=== PATIENT | female | born 1975 ===

== ENCOUNTER 2020-06-19 13:54 | Outpatient (RCR) | payer OTHER, SELFPAY ==
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
--- NOTE | 2020-07-02 14:42 | PCPTNOTE ---
pt did not show for today's appt, attempted to call her, voicemail box is full and was not able to leave her a message with reminder for next appointment time.
--- NOTE | 2020-07-04 14:01 | PCPTNOTE ---
pt did not show for today's appt, called her phone and voice mail box was full, so not able to leave her a message; this is her 2nd in a row show;
--- NOTE | 2020-07-09 14:38 | PCPTNOTE ---
Patient did not show up for scheduled appointment this date; called, voicemail box is full. Notified PT on third no show on next step per our policy.
--- NOTE | 2020-08-06 08:58 | PCPTNOTE ---
PHYSICAL THERAPY DISCHARGE 08-06-2020 Attending Provider: Denise Mo MD Patient:Elvira Asher Date of :1975 Elvira has not returned for any further treatments since the initial evaluation on 06/19/2020, therefore she will be discharged at this time. She did not show for 3 scheduled appointments. The goals were not assessed. Thank you for referring Ms. Asher to [facility]. Please review, sign, date and return this discharge summary JCARLOS. I have been updated about the patient's current status and I agree with discharge from the above service at this time. Referring Physician Date
== END 2020-08-06 14:34 | disposition home or self-care (01) ==
LOC: ANHPT 13:54
PROVIDERS: PCP Family Medicine; Visit Provider Family Medicine
DX: M62.81 Muscle weakness (generalized) (principal)
CPT/HCPCS: 97162

== ENCOUNTER 2020-08-09 06:54 | Outpatient (NON) | payer OTHER, SELFPAY ==
[2020-08-10 22:24] LABS: SARS-CoV-2 RNA PCR Negative
== END 2020-08-09 06:55 ==
LOC: ANHCOVIDDT 06:54
PROVIDERS: PCP Family Medicine; Visit Provider Family Medicine
DX: B34.9 Viral infection, unspecified (principal); Z20.828 Contact with and (suspected) exposure to other viral communicable diseases
CPT/HCPCS: 87635; C9803; U0003